=== PATIENT | female | born 1960 | race Caucasian/White ===

== ENCOUNTER → 2021-01-17 | Outpatient (CLI) | payer MEDICARE, MEDICAID ==
[~2021-01-17] VITALS: Ht 170 cm; Wt 80.0 kg
[~2021-01-17] MED LIST: CATHETER FLUSH 10 ML SYR IV PRN; REGADENOSON 0.4 MG/5 ML SYR (LEXISCAN) IV ONE
[2021-01-17 08:42] VITALS: BP 112/72
--- NOTE | 2021-01-20 13:53 | STRESS TEST ---
DATE OF SERVICE: 01/17/2021 RESTING AND POST REGADENOSON TECHNETIUM-99M TETROFOSMIN SPECT CT IMAGING ORDERING PHYSICIAN: Dr. Mcclure. PRIMARY PHYSICIAN: KARTHIKEYAN Norris, [place], [place]. CLINICAL DIAGNOSES: Malaise and fatigue. Baseline images were carried out after injection of 10.55 mCi of technetium-99m Tetrofosmin. This was followed by 0.4 mg of Regadenoson and 28.7 mCi of technetium-99m Tetrofosmin for stress imaging. The electrocardiogram showed sinus rhythm and incomplete right bundle branch block at baseline. The electrocardiogram did not change significantly with the Regadenoson infusion. Review of images at rest and following stress does not indicate any significant perfusion defects consistent with myocardial ischemia or infarction. Gated images show normal global left ventricular systolic function with normal regional wall motion. Left ventricular ejection fraction is calculated to be 73%. 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
== END ==
LOC: CARD 07:45
PROVIDERS: ATTEND Internal Medicine Cardiovascular Disease
DX: R53.81 Other malaise (principal)
CPT/HCPCS: 78452; 93017; A9502